=== PATIENT | female | born 2000 | race Hispanic/Latino ===

== ENCOUNTER 2021-10-22 12:51 | Emergency (ER) | payer SELFPAY ==
[2021-10-22 12:57] VITALS: BP 132/78; PULSE 107; RESP 16; TEMP 36.5; O2SAT 99
--- NOTE | 2021-10-22 13:26 | ED.FEMALEGU ---
HPI - Female Genitourinary General Chief complaint: Vaginal Bleeding Stated complaint: , spotting Time Seen by Provider: 10/22/21 13:09 History of Present Illness HPI Narrative: 21-year-old female states that several days ago she had taken 4 tests at home that were all positive, she is coming in because she has vaginal bleeding earlier today. She is concerned she may have had a miscarriage, she has had 1 in the past. Denies any pelvic pain. Related Data Allergies Allergy/AdvReac Type Severity Reaction Status Date / Time fish oil Allergy Hives Verified 10/22/21 13:01 [facility] Past Medical History Medical History Healthy adult Miscarriage Social History Social History Smoking status: Never smoker Alcohol intake: never Substance use: never Gender identity (if verbalized by the patient): Female Exam Narrative: EXAMINATION OF ORGAN SYSTEMS/BODY AREAS: Constitutional: Vital signs per nursing GENERAL: Sitting comfortably HEAD: Normal with no signs of head trauma. EYES: EOMI, conjunctiva normal ENT: Hearing grossly intact LUNGS: Nonlabored breathing. HEART: [Regular rate and rhythm] ABD: [Soft], [nontender to palpation] EXT: Normal range of motion SKIN: [No rashes or lesions.] NEURO: [Alert and oriented x 3. No gross focal sensory or strength deficits.] PSYCH: Normal affect Course Vital Signs Vital signs: Vital Signs Temperature 97.7 F 10/22/21 12:57 Pulse Rate 107 H 10/22/21 12:57 Respiratory Rate 16 10/22/21 12:57 Blood Pressure 132/78 10/22/21 12:57 Pulse Oximetry 99 10/22/21 12:57 Oxygen Delivery Room Air 10/22/21 12:57 Temperature 97.7 F 10/22/21 12:57 Pulse Rate 107 H 10/22/21 12:57 Respiratory Rate 16 10/22/21 12:57 Blood Pressure 132/78 10/22/21 12:57 Pulse Oximetry 99 10/22/21 12:57 Oxygen Delivery Room Air 10/22/21 12:57 MDM - Female Genitourinary MDM Narrative Medical decision making narrative: 21-year-old female presenting with vaginal bleeding and positive test at home, last period was 1 month ago, vital signs stable and on exam I see well-appearing patient in no distress, soft nontender abdomen. My concern is for possible early versus miscarriage versus less likely ectopic without any pelvic pain. Hemoglobin stable, she is Rh+, hCG 7. Given this I do feel she needs to return to ER in 2-3 days for repeat hCG, patient is aware and she is also given return precautions including any increased vaginal bleeding, or new abdominal/pelvic pain. Lab Data Result diagrams: 10/22/21 13:26 Labs: Lab Results 10/22/21 10/22/21 Range/Units 13:26 13:26 WBC 7.8 (4.5-10.0) K/mm3 RBC 4.71 (4.2-5.4) M/mm3 Hgb 13.5 D (12.0-15.0) g/dL Hct 42.4 (37.0-47.0) % MCV 90.0 (80-100) fl MCH 28.7 (26-34) pg MCHC 31.8 L (32-36) g/dl RDW 13.2 (11.5-14.5) % Plt Count 271 (150-375) k/mm3 MPV 9.9 (7.4-10.4) fl Immature Gran % (Auto) 0.3 (0-0.5) % Neut % (Auto) 53.1 (45.5-73.1) % Lymph % (Auto) 37.1 (18.3-44.2) % Wilkes % (Auto) 7.8 (2.6-8.5) % Eos % (Auto) 1.3 (0-4.4) % Baso % (Auto) 0.4 (0.2-1.2) % Lymph # (Auto) 2.90 (0.9-3.2) K/mm3 Wilkes # (Auto) 0.6 (0.1-0.6) K/mm3 Eos # (Auto) 0.1 (0-0.3) K/mm3 Baso # (Auto) 0.0 (0.0-0.1) K/mm3 Abs Immat Gran (auto) 0.02 (0.00-0.031) K/mm3 Absolute Neuts (auto) 4.2 (1.3-6.7) K/mm3 Absolute Nucleated RBC 0.0 (0.0-0.012) K/mm3 Nucleated RBC % 0.0 (0.0-0.2) % Beta HCG, Quant 7.07 mIU/ML UCG Bedside Result Negative Reference Range: Negative Discharge Plan Discharge Clinical Impression: Vaginal bleeding, Threatened Patient Disposition: Home, Self-Care Condition: Stable Instructions
[2021-10-22 13:34] LABS: Basophils Percent Auto 0.4 % (0.2-1.2); Eosinophils Absolute Auto 0.1 K/mm3 (0-0.3); Eosinophils Percent Auto 1.3 % (0-4.4); Hematocrit 42.4 % (37.0-47.0); Hemoglobin 13.5 g/dL (12.0-15.0); Immature Granulocyte Absolute 0.02 K/mm3 (0.00-0.031); Immature Granulocyte Percent A 0.3 % (0-0.5); Lymphocytes Percent Auto 37.1 % (18.3-44.2); Mean Corpuscular HGB Conc 31.8 g/dl (32-36); Mean Corpuscular Hemoglobin 28.7 pg (26-34); Mean Platelet Volume 9.9 fl (7.4-10.4); Monocytes Absolute Auto 0.6 K/mm3 (0.1-0.6); Monocytes Percent Auto 7.8 % (2.6-8.5); Neutrophils Absolute Auto 4.2 K/mm3 (1.3-6.7); Neutrophils Percent Auto 53.1 % (45.5-73.1); Platelet Count Result 271 k/mm3 (150-375); Red Blood Count 4.71 M/mm3 (4.2-5.4); Red Cell Distribution Width 13.2 % (11.5-14.5); White Blood Count 7.8 K/mm3 (4.5-10.0)
[2021-10-22 14:02] LABS: Beta HCG Quantitative 7.07 mIU/ML
[2021-10-22 15:22] VITALS: PULSE 98; RESP 16; O2SAT 98
== END 2021-10-22 15:23 | disposition home or self-care (01) ==
PROVIDERS: Emergency Provider Emergency Medicine
DX: O20.0 Threatened abortion (principal); Z3A.01 Less than 8 weeks gestation of pregnancy
CPT/HCPCS: 36415; 81025; 84702; 85025; 99283

== ENCOUNTER 2021-12-18 12:47 | Emergency (ER) | payer SELFPAY ==
[2021-12-18 12:53] VITALS: BP 123/62; PULSE 64; RESP 16; TEMP 36.4; O2SAT 99
[2021-12-18 13:09] LABS: Add Urine Microscopic? NO; Appearance Urine Clear (Clear); Bilirubin Urine Negative (Negative); Blood Urine Negative (Negative); Color Urine Yellow (Yellow); Glucose Urine UA Negative (Negative); Ketones Urine Negative (Negative); Leukocyte Esterase Ur Negative LEU/UL (Negative); Nitrate Urine Negative (Negative); Protein Urine Negative (Negative); Specific Grav Ur 1.008 (1.001-1.035); Urobilinogen Urine Negative mg/dL (<2.0)
--- NOTE | 2021-12-18 13:41 | ED.FEMALEGU ---
HPI - Female Genitourinary General Chief complaint: Urogenital-Female <MELVINA Pizano Last Filed: 12/18/21 19:54> Stated complaint: abdominal pain, dysuria <MELVINA Pizano Last Filed: 12/18/21 19:54> Time Seen by Provider: 12/18/21 12:53 <MELVINA Pizano Last Filed: 12/18/21 19:54> Source: patient <MELVINA Pizano Last Filed: 12/18/21 19:54> Mode of arrival: ambulatory <MELVINA Pizano Last Filed: 12/18/21 19:54> Limitations: no limitations <MELVINA Pizano Last Filed: 12/18/21 19:54> History of Present Illness HPI Narrative: Patient is a 21 y/o female who presents to the ED with c/o wanting to be checked for STDs. Patient reports she has been having unprotected sexual intercourse. She is wanting to be evaluated for STDs. She denies any definitive known exposure. She reports having increased white vaginal discharge, dysuria, intermittent lower abdominal pain. Denies fevers, abnormal vaginal bleeding, nausea, vomiting. <MELVIAN Pizano Last Filed: 12/18/21 19:54> Related Data Allergies/Adverse reactions: Allergies Allergy/AdvReac Type Severity Reaction Status Date / Time fish oil Allergy Hives Verified 10/22/21 13:01 <MELVINA Pizano Last Filed: 12/18/21 19:54> Review of Systems Review of Systems: CONSTITUTIONAL: Denies fever, chills, or sweats. GASTROINTESTINAL: Reports lower ABD pain. Denies nausea, vomiting, or diarrhea. GENITOURINARY: Reports dysuria, vaginal discharge. Denies vaginal bleeding, hematuria. SKIN: Denies rash or itching. <MELVINA Pizano Last Filed: 12/18/21 19:54> All systems reviewed & are unremarkable except as noted in HPI and below <MELVINA Pizano Last Filed: 12/18/21 19:54> [facility] Past Medical History Medical History: Medical History (Updated 12/19/21 @ 00:00 by Angel Obdulio) Miscarriage <Mariana Isaac PA-C - Last Filed: 12/18/21 19:54> Surgical History Surgical History: Surgical History (Updated 12/18/21 @ 13:42 by Mariana Isaac PA-C) No pertinent past surgical history <Mariana Isaac PA-C - Last Filed: 12/18/21 19:54> Social History Social History: Social History Smoking status: Never smoker Alcohol intake: never Substance use: never Gender identity (if verbalized by the patient): Female <Mariana Isaac PA-C - Last Filed: 12/18/21 19:54> Exam Narrative: GENERAL: Well appearing, thin, non-toxic, in no acute distress. HEAD: Normocephalic, atraumatic. NECK: Supple. No adenopathy, no masses. RESPIRATORY: Airway patent, respirations nonlabored. Clear to auscultation bilaterally, no rales, rhonchi, wheezing. CARDIOVASCULAR: Regular rate and rhythm without murmurs, rubs, or gallops. Peripheral pulses 2+ and equal bilaterally. ABDOMINAL: Soft, no appreciable tenderness, nondistended, no hepatosplenomegaly. Normoactive BS. PELVIC: Normal external genitalia. Mild amount of white milky discharge in vaginal vault, no significant odor. No bleeding. No significant CMT. MUSCULOSKELETAL: Moves all extremities. Strength/ROM intact without gross deformities. SKIN: Warm, dry, normal color. No rashes. NEURO: A&O X3. Speech clear. Cranial nerves II-XII grossly intact. Steady gait. No ataxic movements. PSYCHIATRIC: Appropriate mood and affect. Normal interaction. <Mariana Isaac PA-C - Last Filed: 12/18/21 19:54> Course [employer]ESS/PA Physician Supervision For this patient encounter, I reviewed the COSTUME SEAMSTRESS or PA documentation, treatment plan, and medical decision making <Lloyd Mehta MD - Last Filed: 12/19/21 07:24> Vital Signs Vital signs: Vital Signs Temperature 97.6 F 12/18/21 12:53 Pulse Rate 64 12/18/21 12:53 Respiratory Rate 16 12/18/21 12:53 Blood Pressure 123/62 12/18
[2021-12-18] MEDS: cefTRIAXone 1 GM VIAL 0.5 GM IM (14:29)
== END 2021-12-18 14:06 | disposition home or self-care (01) ==
PROVIDERS: Physician Assistant; Emergency Provider Emergency Medicine
DX: A54.9 Gonococcal infection, unspecified (principal)
CPT/HCPCS: 81003; 81025; 87070; 87491; 87591; 87808; 96372; 99283; J0696

== ENCOUNTER 2022-04-18 16:46 | Emergency (ER) | payer SELFPAY ==
[2022-04-18 16:51] VITALS: BP 123/69; PULSE 82; RESP 16; TEMP 36.6; O2SAT 100
--- NOTE | 2022-04-18 17:20 | ED.FEMALEGU ---
HPI - Female Genitourinary General Chief complaint: Urogenital-Female <Yady Myers PA-C - Last Filed: 04/18/22 19:06> Stated complaint: Abnormal discharge, abd pain, urinary symptoms <Yady Myers PA-C - Last Filed: 04/18/22 19:06> Time Seen by Provider: 04/18/22 16:58 <Yady Myers PA-C - Last Filed: 04/18/22 19:06> History of Present Illness HPI Narrative: 21 y/o F, A2, reports for evaluation of left nipple discharge x~2 yrs and dysuria x2 weeks. Pt reports burning with urination and white milky discharge. LMP 2/4 and normal. Denies abnormal vaginal bleeding, fever, body aches, chills, hematuria, diarrhea, vomiting. She is reporting pelvic pain and nausea. She is not established with an OBGYN. Pt reports she has a 3 year old son, born with a uncomplicated vaginal delivery. 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 She breastfed her 3 year old for 11 months, and reports unilateral L nipple drainage since then. She reports spontaneous nipple discharge and the ability to express it. Denies bloody or purulent drainage, breast pain, rashes, masses, vision changes. She has never been evaluated for her breast discharge. <Yady Myers PA-C - Last Filed: 04/18/22 19:06> Related Data Allergies/Adverse reactions: Allergies Allergy/AdvReac Type Severity Reaction Status Date / Time fish oil Allergy Hives Verified 04/18/22 16:48 <Yady Myers PA-C - Last Filed: 04/18/22 19:06> Review of Systems Review of Systems: CONSTITUTIONAL: Denies fever, chills EYES: Denies visual changes, redness, or discharge. ENT: Denies rhinorrhea, congestion, sore throat, or otalgia. CARDIOVASCULAR: Denies chest pain, palpitations, or edema. RESPIRATORY: Denies cough or dyspnea. GASTROINTESTINAL: Denies diarrhea. GENITOURINARY: Denies dysuria or hematuria. SKIN: Denies rash or itching. MUSCULOSKELETAL: Denies back pain, joint pain, or myalgia. NEUROLOGIC: Denies headache, numbness, dizziness, or weakness. PSYCHIATRIC: Denies anxiety or depression. <Yady Myers PA-C - Last Filed: 04/18/22 19:06> [facility] Past Medical History Medical History: Medical History Miscarriage <Yady Myers PA-C - Last Filed: 04/18/22 19:06> Surgical History Surgical History: Surgical History No pertinent past surgical history <Yady Myers PA-C - Last Filed: 04/18/22 19:06> Social History Social History: Social History Smoking status: Never smoker Alcohol intake: never Substance use: never Gender identity (if verbalized by the patient): Female <Yady Myers PA-C - Last Filed: 04/18/22 19:06> Exam Narrative: GENERAL: Well-appearing, well-nourished, and in no acute distress. HEAD: Normocephalic, atraumatic. EYES: PERRLA and EOMI. Peripheral vision intact. ENT: Nares clear, no rhinorrhea or epistaxis. Mucous membranes moist. Oropharynx without tonsillar hypertrophy exudate or other lesions. NECK: Supple. No adenopathy or masses. No JVD CHEST: Clear to auscultation. No respiratory distress. No wheezes rales or rhonchi. No axillary adenopathy bilaterally. No masses, rash, or dimpling to bilateral breasts. Pt was able to express a scant amount of milky white discharge out of her left breast. HEART: Regular rate and rhythm. No murmur heard. Normal peripheral pulses. ABDOMEN: Soft, nontender, nondistended, normal active bowel sounds. No organomegaly, guarding, or rigidity. No CVA tenderness. UROGYN: No vesicles, lesions, or rash to labia minora, majora, or vaginal wall. Scant milky white discharge in vaginal canal. Ectropion at the cervical os. No CMT. No obvious adnexal masses appreciated. EXTREMITIES: Normal range of motion. No edema. SKIN: Warm, dry, no rash. NEURO: No focal deficits. Alert
[2022-04-18 17:52] LABS: RBC Urine 0-2 /hpf (0-2); Squamous Epithelial Cell Urine Few /hpf (Few); WBC Urine 0-3 /hpf
[2022-04-18 17:57] LABS: Appearance Urine Clear (Clear); Bilirubin Urine Negative (Negative); Blood Urine Negative (Negative); Color Urine Yellow (Yellow); Glucose Urine UA Negative (Negative); Ketones Urine Negative (Negative); Leukocyte Esterase Ur Trace LEU/UL (Negative); Nitrate Urine Negative (Negative); Protein Urine Negative (Negative); Specific Grav Ur <= 1.005 (1.001-1.035); Urobilinogen Urine 0.2 mg/dL (<2.0)
[2022-04-18 17:58] LABS: Add Urine Microscopic? YES
[2022-04-18] MEDS: WATER, STERILE FOR INJECTION 10 ML VIAL XX (18:49)
[2022-04-18] MEDS: cefTRIAXone 1 GM VIAL 0.5 GM IM (18:49)
[2022-04-18 19:09] VITALS: BP 130/88; PULSE 82; RESP 16; O2SAT 98
== END 2022-04-18 19:10 | disposition home or self-care (01) ==
PROVIDERS: Emergency Provider Physician Assistant
DX: N64.3 Galactorrhea not associated with childbirth (principal); R30.0 Dysuria; N89.8 Other specified noninflammatory disorders of vagina
CPT/HCPCS: 81001; 81025; 87070; 87077; 87086; 87491; 87591; 87808; 96372; 99284; J0696